=== PATIENT | female | born 1940 | race Caucasian/White ===

== ENCOUNTER → 2017-04-08 | Outpatient (CLI) | payer MEDICARE, BC | END | disposition home or self-care (01) | LOC: PCVCCLINIC 16:11 | PROVIDERS: ATTEND Internal Medicine | DX: I25.10 Atherosclerotic heart disease of native coronary artery without angina pectoris (principal); I65.23 Occlusion and stenosis of bilateral carotid arteries; E78.5 Hyperlipidemia, unspecified; R00.2 Palpitations; R06.09 Other forms of dyspnea; Z87.891 Personal history of nicotine dependence; Z79.82 Long term (current) use of aspirin | CPT/HCPCS: 80061; 93005; G0463 ==

== ENCOUNTER → 2017-10-07 | Outpatient (CLI) | payer BC ==
--- NOTE | 2017-10-07 14:52 | PCVCIMAG ---
APPROVED REPORT Indications Stenosis Risk Factors Hypertension: Hyperlipidemia Doppler Spectral Velocity Analysis PSV / EDVPSV / EDV ECA (R) 70 / 6 cm/sECA (L) 56 / 9 cm/s dICA (R) 84 / 29 cm/sdICA (L) 76 / 28 cm/s Chandrakant (R) 100 / 26 cm/smICA (L) 74 / 31 cm/s pICA (R) 73 / 0 cm/spICA (L) 56 / 16 cm/s Bulb (R) 46 / 8 cm/sBulb (L) 32 / 10 cm/s dCCA (R) 62 / 9 cm/sdCCA (L) 48 / 17 cm/s mCCA (R) 64 / 8 cm/smCCA (L) 60 / 14 cm/s Vert (R) 47 / 5 cm/sVert (L) 39 / 13 cm/s ICA/CCA 1.61 ICA/CCA 1.27 Basic Measurements Blood Pressure: Pulses: Right Left RightLeft Brachial(Sitting) 120/43tgZp501/80mmHgTemporal Real Time B-Mode Imaging Vert. (R)AntegradeVert. (L)Antegrade Findings The right carotid bulb has moderate calcified plaque. The right proximal internal carotid artery shows <40% stenosis. The right common carotid artery shows no significant stenosis. The right external carotid artery shows no significant stenosis. The left carotid bulb has moderate calcified plaque. The left proximal internal carotid artery shows <40% stenosis. The left common carotid artery shows no significant stenosis. The left external carotid artery shows no significant stenosis. Conclusion 1. Right internal carotid artery stenosis (<40%) 2. Left internal carotid artery stenosis (<40%) 3. Antegrade vertebral flow
--- NOTE | 2017-10-07 15:02 | PCVCIMAG ---
APPROVED REPORT Study performed: 10/07/2017 13:49:49 EXAM: Comprehensive 2D, Doppler, and color-flow Echocardiogram Patient Location: Echo lab Status: routine BSA: 1.82 HR: 71 bpmBP: 122/80 mmHg Rhythm: NSR Other Information Study Quality: Fair Technically limited study due to body habitus. Indications Dyspnea CAD Palpitations CABG 2D Dimensions LVEF(%): 24.18 (>50%) IVSd: 11.91 (7-11mm) LVDd: 50.37 mm PWd: 12.03 (7-11mm)Ascending Ao: 40.29 (22-36mm) LVDs: 44.74 (25-40mm) Left Atrium: 38.92 (27-40mm) Aortic Root: 37.30 mm LV Single Plane 4CH: 37.41 % LV Single Plane 2CH: 18.55 %Johnson's LVEF: 27.98 % Volumes Left Atrial Volume (Systole) Single Plane 4CH: 78.74 mLSingle Plane 2CH: 86.72 mL LA ESV Index: 46.00 mL/m2 Aortic Valve AoV Peak Wilder.: 1.30 m/s AO Peak Gr.: 6.74 mmHgLVOT Max P.94 mmHg LVOT Max V: 0.70 m/s AI Vmax: 4.47 m/s AI [place]: 2.66 m/s2 AI PHT: 487.22 ms Mitral Valve E/A Ratio: 0.5 MV Decel. Time: 280.80 ms MV E Max Wlider.: 0.52 m/s MV A Wilder.: 1.10 m/s IVRT: 197.23 ms Pulmonary Valve PV Peak Wilder.: 0.58 m/sPV Peak Gr.: 1.33 mmHg Pulmonary Vein P Vein S: 0.21 m/sP Vein A: 0.38 m/s P Vein D: 0.27 m/sP Vein A Dur.: 193.8 msec P Vein S/D Ratio: 0.78 Tricuspid Valve TR Peak Wilder.: 2.13 m/s TR Peak Gr.: 18.20 mmHg Left Ventricle The left ventricle is normal size. Regional wall motion abnormalities cannot be excluded. Mild concentric left ventricular hypertrophy. Left ventricular systolic function is at lower limits of normal to mildly depressed LVEF is 45-50%. Grade I - abnormal relaxation pattern. Right Ventricle The right ventricle is normal size. The right ventricular systolic function is normal. Atria Left atrium is moderately dilated. The right atrium size is normal. Aortic Valve The aortic valve is sclerotic Mild aortic regurgitation. There is no aortic valvular stenosis. Mitral Valve Mild mitral annular calcification Mild mitral regurgitation. No evidence of mitral valve stenosis. Tricuspid Valve The tricuspid valve is normal in structure. Trace tricuspid regurgitation with PAP of 25 mmHg. Pulmonic Valve The pulmonary valve is normal in structure. Mild pulmonic regurgitation. Great Vessels The aortic root is normal in size. IVC is normal in size and collapses with >50% inspiration Pericardium There is no pericardial effusion. <Conclusion> Left ventricular systolic function is at lower limits of normal to mildly depressed LVEF is 45-50%. Grade I diastolic dysfunction Left atrium is moderately dilated. The aortic valve is sclerotic. Mild aortic regurgitation, no stenosis. Mild mitral annular calcification. Mild mitral regurgitation. Pulmonary artery pressure could not be reliably ascertained There is no pericardial effusion.
== END | disposition home or self-care (01) ==
LOC: PCVCIMAG 13:33
PROVIDERS: ATTEND Internal Medicine
DX: I65.23 Occlusion and stenosis of bilateral carotid arteries (principal); I08.3 Combined rheumatic disorders of mitral, aortic and tricuspid valves; I25.10 Atherosclerotic heart disease of native coronary artery without angina pectoris; I25.5 Ischemic cardiomyopathy; I10 Essential (primary) hypertension; E78.5 Hyperlipidemia, unspecified; R06.00 Dyspnea, unspecified; R00.2 Palpitations; Z95.1 Presence of aortocoronary bypass graft; Z87.891 Personal history of nicotine dependence; Z79.82 Long term (current) use of aspirin
CPT/HCPCS: 80061; 93005; 93306; 93880; G0463

== ENCOUNTER → 2018-04-07 | Outpatient (CLI) | payer BC | END | disposition home or self-care (01) | LOC: PCVCCLINIC 12:45 | DX: I25.10 Atherosclerotic heart disease of native coronary artery without angina pectoris (principal); I25.5 Ischemic cardiomyopathy; I47.1 Supraventricular tachycardia; I10 Essential (primary) hypertension; I65.23 Occlusion and stenosis of bilateral carotid arteries; E78.5 Hyperlipidemia, unspecified; D32.9 Benign neoplasm of meninges, unspecified; E11.9 Type 2 diabetes mellitus without complications; Z87.891 Personal history of nicotine dependence | CPT/HCPCS: 80061; 93005; G0463 ==

== ENCOUNTER → 2018-10-07 | Outpatient (CLI) | payer BC | END | disposition home or self-care (01) | LOC: PCVCCLINIC 11:56 | PROVIDERS: ATTEND Internal Medicine | DX: I25.10 Atherosclerotic heart disease of native coronary artery without angina pectoris (principal); I25.5 Ischemic cardiomyopathy; I47.1 Supraventricular tachycardia; I10 Essential (primary) hypertension; I65.23 Occlusion and stenosis of bilateral carotid arteries; E78.5 Hyperlipidemia, unspecified; D32.9 Benign neoplasm of meninges, unspecified; E11.9 Type 2 diabetes mellitus without complications; R94.31 Abnormal electrocardiogram [ECG] [EKG]; J44.9 Chronic obstructive pulmonary disease, unspecified; Z87.891 Personal history of nicotine dependence; Z79.899 Other long term (current) drug therapy; Z79.82 Long term (current) use of aspirin | CPT/HCPCS: 36415; 80061; 93005; G0463 ==

== ENCOUNTER → 2019-04-07 | Outpatient (CLI) | payer BC | END | disposition home or self-care (01) | LOC: PCVCCLINIC 11:00 | PROVIDERS: ATTEND Internal Medicine | DX: I25.10 Atherosclerotic heart disease of native coronary artery without angina pectoris (principal); I25.5 Ischemic cardiomyopathy; I47.1 Supraventricular tachycardia; I10 Essential (primary) hypertension; I65.23 Occlusion and stenosis of bilateral carotid arteries; E78.5 Hyperlipidemia, unspecified; D32.9 Benign neoplasm of meninges, unspecified; E11.9 Type 2 diabetes mellitus without complications; Z87.891 Personal history of nicotine dependence; Z79.82 Long term (current) use of aspirin | CPT/HCPCS: 36415; 80061; 93005; G0463 ==